=== PATIENT | female | born 1940 | race Caucasian/White ===

== ENCOUNTER 2018-05-26 10:00 | Inpatient (IN) | payer MEDICARE, OTHER ==
[~2018-05-26] VITALS: Ht 152.4 cm; Wt 83.5 kg
[2018-05-28 09:38] VITALS: BP 158/76
[2018-05-28 10:17] LABS: BASOPHILS # (AUTO) 0.02 x10^3/uL (0-0.1); BASOPHILS % (AUTO) 0 % (0-1); EOSINOPHILS # (AUTO) 0.03 x10^3/uL (0-0.4); EOSINOPHILS % (AUTO) 1 % (1-7); LYMPHOCYTES # (AUTO) 0.91 x10^3/uL (1-3.4); LYMPHOCYTES % (AUTO) 21 % (22-44); MD NO; MEAN CORPUSCULAR HEMOGLOBIN 25.2 pg (27.0-34.8); MEAN CORPUSCULAR HGB CONC 31.7 g/dL (32.4-35.8); MEAN CORPUSCULAR VOLUME 79.3 fL (80-100); MEAN PLATELET VOLUME 9.4 fL (7.4-10.4); MONOCYTES # (AUTO) 0.68 x10^3/uL (0.2-0.8); MONOCYTES % (AUTO) 16 % (2-9); NEUTROPHILS # (AUTO) 2.61 x10^3/uL (1.8-6.8); NEUTROPHILS % (AUTO) 61 % (42-75); PLATELET COUNT 247 x10^3/uL (130-400); RED BLOOD COUNT 3.83 x10^6/uL (3.82-5.3); RED CELL DISTRIBUTION WIDTH 16.4 % (9.6-15.2)
[2018-05-28] MEDS ORDERED: LEVO150T5 PO (10:18)
[2018-05-28] MEDS ORDERED: SOTA80TA PO (10:18)
[2018-05-28] MEDS ORDERED: LISI-167 PO (10:18)
[2018-05-28] MEDS ORDERED: ALEN70TA5 PO (10:18)
[2018-05-28] MEDS ORDERED: ESCI20TA PO (10:18)
[2018-05-28 10:22] LABS: INTERNATIONAL NORMALIZED RATIO 1.12 (0.93-1.1); PROTHROMBIN TIME 11.6 Seconds (9.6-11.5)
[2018-05-28 10:26] LABS: ALANINE AMINOTRANSFERASE 24 U/L (12-78); ALBUMIN 3.7 g/dL (3.4-5.0); ANION GAP 9 mmol/L (5-15); CALCIUM 8.8 mg/dL (8.5-10.1); CHLORIDE 105 mmol/L (98-107); CREATININE 0.55 mg/dL (0.55-1.02)
[2018-05-28 10:29] LABS: ALKALINE PHOSPHATASE 68 U/L (45-117); BILIRUBIN,TOTAL 0.5 mg/dL (0.2-1.0); TOTAL PROTEIN 7.1 g/dL (6.4-8.2)
[2018-05-28] MEDS: LACTATED RINGERS 1,000 ML IV SCH (10:33)
[2018-05-28] MEDS ORDERED: ACETAMINOPHEN 500 MG TABLET PO ONE (11:00)
[2018-05-28] MEDS ORDERED: OXYcodone IR 5MG TABLET PO ONE (11:00)
[2018-05-28] MEDS ORDERED: SCOPOLAMINE PATCH, 1.5MG PATCH.TD72 TD ONE (11:00)
[2018-05-28] MEDS ORDERED: GABAPENTIN 300 MG CAPSULE PO ONE (11:00)
[2018-05-28] MEDS ORDERED: ONDANSETRON ODT 8 MG PO ONE (11:00)
[2018-05-28] MEDS ORDERED: ROCURONIUM 10MG/ML,5ML ONE (12:07)
[2018-05-28] MEDS ORDERED: PROPOFOL 10 MG/ML, 20ML ONE (12:07)
[2018-05-28] MEDS ORDERED: CEFOTETAN PMX 2GM/50ML 50 ML ONE (12:07)
[2018-05-28] MEDS ORDERED: BUPIVACAINE/PF 0.5% ONE (12:13)
[2018-05-28] MEDS ORDERED: NEOSTIGMINE 1 MG/ML, 10ML ONE (12:33)
[2018-05-28] MEDS ORDERED: GLYCOPYRROLATE 0.2MG/1ML, 5ML ONE (12:33)
[2018-05-28] MEDS ORDERED: DEXAMETHASONE 4 MG/ML, 1ML ONE (12:33)
[2018-05-28] MEDS ORDERED: PROMETHAZINE 25 MG/ML, 1ML IV PRN (13:00)
[2018-05-28] MEDS ORDERED: METOPROLOL 1 MG/ML, 5ML IV PRN (13:00)
[2018-05-28] MEDS ORDERED: DIAZEPAM 5 MG/ML, 2ML IVPush PRN (13:00)
[2018-05-28] MEDS ORDERED: OXYcodone 5 MG/5 ML ORAL.SOL UDC PO PRN (13:00)
[2018-05-28] MEDS ORDERED: MEPERIDINE/PF 25MG/0.5ML IVPush PRN (13:00)
[2018-05-28] MEDS ORDERED: hydrALAzine 20 MG/ML, 1ML IV PRN (13:00)
[2018-05-28] MEDS ORDERED: LABETALOL 5MG/ML, 20ML IV PRN (13:00)
[2018-05-28] MEDS ORDERED: EPHEDRINE 50 MG/ML, 1ML IVPush PRN (13:00)
[2018-05-28] MEDS ORDERED: ALBUTEROL SULFATE 2.5 MG/3 ML NPPB PRN (13:00)
[2018-05-28] MEDS ORDERED: FENTANYL PF 250 MCG/5ML ONE (14:35)
[2018-05-28] MEDS ORDERED: ONDANSETRON 2MG/ML, 2ML ONE (15:38)
[2018-05-28] MEDS ORDERED: PHENYLEPHRINE 10 MG/ML ONE (15:38)
[2018-05-28] MEDS ORDERED: FENTANYL PF 100 MCG/2ML ONE (16:44)
[2018-05-28] MEDS: FENTANYL PF 100 MCG/2ML IV PRN ×2 (16:46→16:57)
[2018-05-28] MEDS ORDERED: HYDROmorphone 2 MG/ML, 1ML ONE (17:23)
[2018-05-28] MEDS ORDERED: HYDROmorphone 1 MG/ML, 1ML IV PRN (17:30)
[2018-05-28 20:25] VITALS: BP 116/58
[2018-05-28] MEDS: POTASSIUM CHLORIDE 20 MEQ in D5%-0.45% NACL 1,000 ML IV SCH (20:30)
[2018-05-28] MEDS: CEFOTETAN PMX 1GM/50ML 50 ML IVPB SCH (20:31)
[2018-05-29] VITALS (8 sets, daily range): BP systolic 109–133; BP diastolic 50–61
[2018-05-29] MEDS ORDERED: SODIUM CHLORIDE 0.9% 500 ML IV ONE (01:00)
[2018-05-29] MEDS: POTASSIUM CHLORIDE 20 MEQ in D5%-0.45% NACL 1,000 ML IV SCH ×4 (01:29→23:37)
[2018-05-29] MEDS: SODIUM CHLORIDE 0.9% 500 ML IV SCH ×2 (02:30→04:57)
[2018-05-29] MEDS: ONDANSETRON 2MG/ML, 2ML IVPush PRN (04:13)
[2018-05-29 05:46] LABS: ALBUMIN 2.5 g/dL (3.4-5.0); ANION GAP 8 mmol/L (5-15); CALCIUM 7.5 mg/dL (8.5-10.1); CHLORIDE 108 mmol/L (98-107); CREATININE 0.84 mg/dL (0.55-1.02)
[2018-05-29 05:54] LABS: MEAN CORPUSCULAR HEMOGLOBIN 25.1 pg (27.0-34.8); MEAN CORPUSCULAR HGB CONC 31.6 g/dL (32.4-35.8); MEAN CORPUSCULAR VOLUME 79.6 fL (80-100); MEAN PLATELET VOLUME 9.6 fL (7.4-10.4); PLATELET COUNT 236 x10^3/uL (130-400); RED BLOOD COUNT 2.92 x10^6/uL (3.82-5.3); RED CELL DISTRIBUTION WIDTH 16.6 % (9.6-15.2)
[2018-05-29 06:10] LABS: MD YES
[2018-05-29 06:12] LABS: BANDS%(MANUAL) 9 % (0-7); LYMPH#(MANUAL) 0.67 x10^3/uL (1-3.4); LYMPHS% (MANUAL) 5 % (22-44); MONOS% (MANUAL) 6 % (2-9); SEG#(MANUAL) 10.64 x10^3/uL (1.8-6.8); SEGS% (MANUAL) 80 % (42-75)
[2018-05-29 06:14] LABS: ANISOCYTOSIS 1+; MICROCYTOSIS 1+; POLYCHROMASIA 1+
[2018-05-29 06:15] LABS: <PLATELET ESTIMATE> ADEQUATE; <PLT MORPHOLOGY> NORMAL PLT MORPH
[2018-05-29] MEDS: CEFOTETAN PMX 1GM/50ML 50 ML IVPB SCH (06:51)
[2018-05-29] MEDS: LACTATED RINGERS 1,000 ML IV SCH (07:01)
[2018-05-29] MEDS: INSULIN LISPRO 100 UNITS/ML, PEN SQ-INSULIN SCH ×3 (11:45→21:00)
[2018-05-29 12:07] LABS: MEAN CORPUSCULAR HEMOGLOBIN 24.6 pg (27.0-34.8); MEAN CORPUSCULAR HGB CONC 31.1 g/dL (32.4-35.8); MEAN CORPUSCULAR VOLUME 79.2 fL (80-100); MEAN PLATELET VOLUME 9.5 fL (7.4-10.4); PLATELET COUNT 230 x10^3/uL (130-400); RED BLOOD COUNT 2.85 x10^6/uL (3.82-5.3); RED CELL DISTRIBUTION WIDTH 16.7 % (9.6-15.2)
[2018-05-29 12:59] LABS: MD YES
[2018-05-29 13:00] LABS: BAND#(MANUAL) 0.14 x10^3/uL; BANDS%(MANUAL) 1 % (0-7); LYMPH#(MANUAL) 0.69 x10^3/uL (1-3.4); LYMPHS% (MANUAL) 5 % (22-44); MONOS#(MANUAL) 0.69 x10^3/uL (0.3-2.7); MONOS% (MANUAL) 5 % (2-9); SEG#(MANUAL) 12.19 x10^3/uL (1.8-6.8); SEGS% (MANUAL) 89 % (42-75)
[2018-05-29 13:01] LABS: ANISOCYTOSIS 1+; MICROCYTOSIS 1+; POLYCHROMASIA 1+
[2018-05-29 13:02] LABS: HYPOCHROMIA 1+
[2018-05-29 13:03] LABS: <PLATELET ESTIMATE> ADEQUATE; <PLT MORPHOLOGY> NORMAL PLT MORPH
[2018-05-29] MEDS ORDERED: LORazepam 0.5MG TABLET PO PRN (20:00)
[2018-05-30] MEDS: INSULIN LISPRO 100 UNITS/ML, PEN SQ-INSULIN SCH ×4 (03:00→21:00)
[2018-05-30] MEDS: LEVOTHYROXINE 150 MCG TABLET PO SCH (05:56)
[2018-05-30] MEDS: POTASSIUM CHLORIDE 20 MEQ in D5%-0.45% NACL 1,000 ML IV SCH ×3 (08:03→20:20)
[2018-05-30 08:12] LABS: MEAN CORPUSCULAR HEMOGLOBIN 26.6 pg (27.0-34.8); MEAN CORPUSCULAR HGB CONC 32.1 g/dL (32.4-35.8); MEAN PLATELET VOLUME 9.2 fL (7.4-10.4); PLATELET COUNT 195 x10^3/uL (130-400); RED BLOOD COUNT 3.34 x10^6/uL (3.82-5.3); RED CELL DISTRIBUTION WIDTH 16.1 % (9.6-15.2)
[2018-05-30 08:17] LABS: ANION GAP 5 mmol/L (5-15); CALCIUM 7.8 mg/dL (8.5-10.1); CHLORIDE 104 mmol/L (98-107); CREATININE 0.47 mg/dL (0.55-1.02)
[2018-05-30 08:33] LABS: BAND#(MANUAL) 0.54 x10^3/uL; BANDS%(MANUAL) 5 % (0-7); LYMPH#(MANUAL) 0.76 x10^3/uL (1-3.4); LYMPHS% (MANUAL) 7 % (22-44); MD YES; MONOS#(MANUAL) 0.32 x10^3/uL (0.3-2.7); MONOS% (MANUAL) 3 % (2-9); SEG#(MANUAL) 9.18 x10^3/uL (1.8-6.8); SEGS% (MANUAL) 85 % (42-75)
[2018-05-30 08:34] LABS: <PLATELET ESTIMATE> ADEQUATE; <PLT MORPHOLOGY> NORMAL PLT MORPH; ANISOCYTOSIS 1+; POLYCHROMASIA 1+
[2018-05-30 17:51] VITALS: BP 139/72
[2018-05-30 20:52] VITALS: BP 113/73
[2018-05-31] VITALS (10 sets, daily range): BP systolic 107–137; BP diastolic 67–81
[2018-05-31] MEDS: SOTALOL 80MG TABLET PO SCH ×2 (00:16→02:47)
[2018-05-31] MEDS: POTASSIUM CHLORIDE 20 MEQ in D5%-0.45% NACL 1,000 ML IV SCH ×2 (02:41→14:30)
[2018-05-31] MEDS: INSULIN LISPRO 100 UNITS/ML, PEN SQ-INSULIN SCH ×4 (03:00→21:00)
[2018-05-31 05:40] LABS: BASOPHILS # (AUTO) 0.01 x10^3/uL (0-0.1); BASOPHILS % (AUTO) 0 % (0-1); EOSINOPHILS # (AUTO) 0.25 x10^3/uL (0-0.4); EOSINOPHILS % (AUTO) 3 % (1-7); LYMPHOCYTES # (AUTO) 0.95 x10^3/uL (1-3.4); LYMPHOCYTES % (AUTO) 12 % (22-44); MD NO; MEAN CORPUSCULAR HGB CONC 32.6 g/dL (32.4-35.8); MEAN CORPUSCULAR VOLUME 82.8 fL (80-100); MEAN PLATELET VOLUME 9.2 fL (7.4-10.4); MONOCYTES # (AUTO) 0.89 x10^3/uL (0.2-0.8); MONOCYTES % (AUTO) 11 % (2-9); NEUTROPHILS # (AUTO) 6.09 x10^3/uL (1.8-6.8); NEUTROPHILS % (AUTO) 74 % (42-75); PLATELET COUNT 196 x10^3/uL (130-400); RED BLOOD COUNT 3.14 x10^6/uL (3.82-5.3); RED CELL DISTRIBUTION WIDTH 17.5 % (9.6-15.2)
[2018-05-31 05:46] LABS: CHLORIDE 104 mmol/L (98-107)
[2018-05-31 05:52] LABS: ANION GAP 8 mmol/L (5-15); CALCIUM 7.7 mg/dL (8.5-10.1); CREATININE 0.34 mg/dL (0.55-1.02)
[2018-05-31] MEDS: LEVOTHYROXINE 150 MCG TABLET PO SCH (06:00)
[2018-05-31] MEDS ORDERED: LEVOTHYROXINE 25 MCG TABLET ONE (06:13)
[2018-05-31] MEDS ORDERED: LEVOTHYROXINE 125 MCG TABLET ONE (06:13)
[2018-05-31] MEDS ORDERED: SODIUM CHLORIDE 0.9%, 250ML IVBOLUS ONE (08:00)
[2018-05-31 11:50] LABS: INTERNATIONAL NORMALIZED RATIO 1.02 (0.93-1.1); PROTHROMBIN TIME 10.6 Seconds (9.6-11.5)
[2018-05-31] MEDS ORDERED: OMNIPAQUE 350 MG/ML, 100ML BOTTLE ONE (16:08)
[2018-05-31] MEDS ORDERED: MIDAZOLAM 1 MG/ML, 2ML ONE ×2 (18:41→22:14)
[2018-05-31] MEDS ORDERED: FENTANYL PF 100 MCG/2ML ONE ×3 (18:41→21:37)
[2018-05-31] MEDS ORDERED: SUCCINYLCHOLINE 20 MG/ML, 10ML ONE (19:05)
[2018-05-31] MEDS ORDERED: PROPOFOL 10 MG/ML, 20ML ONE (19:05)
[2018-05-31] MEDS ORDERED: ONDANSETRON 2MG/ML, 2ML ONE (19:05)
[2018-05-31] MEDS ORDERED: ROCURONIUM 10MG/ML,5ML ONE (19:05)
[2018-05-31] MEDS ORDERED: DEXAMETHASONE 4 MG/ML, 1ML ONE (19:05)
[2018-05-31] MEDS ORDERED: LABETALOL 5MG/ML 40ML VIAL ONE (19:05)
[2018-05-31] MEDS ORDERED: GLYCOPYRROLATE 0.2MG/1ML, 5ML ONE (19:05)
[2018-05-31] MEDS ORDERED: NEOSTIGMINE 1 MG/ML, 10ML ONE (19:05)
[2018-05-31] MEDS ORDERED: CEFOTETAN 1 GM ONE (19:05)
[2018-05-31] MEDS ORDERED: HYDROmorphone 2 MG/ML, 1ML ONE (21:37)
[2018-05-31] MEDS: FENTANYL PF 100 MCG/2ML IV PRN ×2 (21:40→21:45)
[2018-05-31] MEDS ORDERED: HALOPERIDOL 5 MG/ML ONE (21:48)
[2018-05-31] MEDS: HYDROmorphone 1 MG/ML, 1ML IV PRN ×2 (21:50→22:24)
[2018-05-31] MEDS ORDERED: MEPERIDINE/PF 25MG/0.5ML IVPush PRN (22:00)
[2018-05-31] MEDS ORDERED: ALBUTEROL SULFATE 2.5 MG/3 ML NPPB PRN (22:00)
[2018-05-31] MEDS ORDERED: hydrALAzine 20 MG/ML, 1ML IV PRN (22:00)
[2018-05-31] MEDS ORDERED: ACETAMINOPHEN 325 MG TABLET PO PRN (22:00)
[2018-05-31] MEDS ORDERED: HYDROcodone/APAP 7.5-325MG/15ML UDC PO PRN (22:00)
[2018-05-31] MEDS ORDERED: OXYcodone 5 MG/5 ML ORAL.SOL UDC PO PRN (22:00)
[2018-05-31] MEDS ORDERED: LABETALOL 5MG/ML, 20ML IV PRN (22:00)
[2018-05-31] MEDS ORDERED: EPHEDRINE 50 MG/ML, 1ML IVPush PRN (22:00)
[2018-05-31] MEDS ORDERED: MIDAZOLAM 1 MG/ML, 2ML IV PRN (22:00)
[2018-05-31] MEDS ORDERED: ONDANSETRON ODT 8 MG PO PRN (22:00)
[2018-05-31] MEDS ORDERED: PROMETHAZINE 25 MG/ML, 1ML IV PRN (22:00)
[2018-05-31] MEDS ORDERED: HALOPERIDOL 5 MG/ML IV PRN (22:00)
[2018-06-01 04:00] VITALS: BP 148/91
[2018-06-01] MEDS: INSULIN LISPRO 100 UNITS/ML, PEN SQ-INSULIN SCH ×2 (04:10→09:00)
[2018-06-01 04:28] LABS: BASOPHILS # (AUTO) 0.07 x10^3/uL (0-0.1); BASOPHILS % (AUTO) 1 % (0-1); EOSINOPHILS % (AUTO) 0 % (1-7); LYMPHOCYTES # (AUTO) 0.79 x10^3/uL (1-3.4); LYMPHOCYTES % (AUTO) 6 % (22-44); MD NO; MEAN CORPUSCULAR HEMOGLOBIN 27.9 pg (27.0-34.8); MEAN CORPUSCULAR HGB CONC 33.2 g/dL (32.4-35.8); MEAN CORPUSCULAR VOLUME 83.9 fL (80-100); MEAN PLATELET VOLUME 9.6 fL (7.4-10.4); MONOCYTES # (AUTO) 0.48 x10^3/uL (0.2-0.8); MONOCYTES % (AUTO) 4 % (2-9); NEUTROPHILS # (AUTO) 11.15 x10^3/uL (1.8-6.8); NEUTROPHILS % (AUTO) 89 % (42-75); PLATELET COUNT 196 x10^3/uL (130-400); RED BLOOD COUNT 4.37 x10^6/uL (3.82-5.3); RED CELL DISTRIBUTION WIDTH 17.1 % (9.6-15.2)
[2018-06-01 04:36] LABS: ANION GAP 6 mmol/L (5-15); CALCIUM 7.5 mg/dL (8.5-10.1); CHLORIDE 107 mmol/L (98-107)
[2018-06-01 04:37] LABS: CREATININE 0.36 mg/dL (0.55-1.02)
[2018-06-01] MEDS: POTASSIUM CHLORIDE 20 MEQ in D5%-0.45% NACL 1,000 ML IV SCH ×3 (04:48→23:09)
[2018-06-01] MEDS: LEVOTHYROXINE 150 MCG TABLET PO SCH (05:56)
[2018-06-01] MEDS: PANTOPRAZOLE 40 MG IV IVPush SCH (09:41)
[2018-06-01] MEDS: CEFOTETAN PMX 1GM/50ML 50 ML IV SCH ×2 (10:08→23:10)
[2018-06-01] MEDS ORDERED: MENING VAC A,C,Y,W-135/PF 0.5 ML SQ-VACC ONE (11:00)
[2018-06-01] MEDS ORDERED: PNEUMOCOCCAL 23 VACCINE IM ONE (11:00)
[2018-06-01] MEDS ORDERED: HAEMOPH B POLY CONJ-TET TOX/PF 10 MCG/0.5 ML INJ IM-VACC ONE (11:00)
[2018-06-01] MEDS: SOTALOL 80MG TABLET PO SCH ×2 (13:39→19:14)
[2018-06-01] MEDS: DIPHENHYDRAMINE 50 MG/ML, 1ML IV PRN (20:50)
[2018-06-02 05:03] VITALS: BP 120/47
[2018-06-02] MEDS: LEVOTHYROXINE 150 MCG TABLET PO SCH (05:13)
[2018-06-02] MEDS: SOTALOL 80MG TABLET PO SCH ×2 (05:14→17:46)
[2018-06-02 05:28] LABS: ANION GAP 6 mmol/L (5-15); CALCIUM 7.3 mg/dL (8.5-10.1); CHLORIDE 102 mmol/L (98-107); CREATININE 0.43 mg/dL (0.55-1.02); MEAN CORPUSCULAR HEMOGLOBIN 27.3 pg (27.0-34.8); MEAN CORPUSCULAR HGB CONC 32.5 g/dL (32.4-35.8); MEAN PLATELET VOLUME 8.8 fL (7.4-10.4); PLATELET COUNT 221 x10^3/uL (130-400); RED BLOOD COUNT 3.56 x10^6/uL (3.82-5.3)
[2018-06-02] MEDS ORDERED: LEVOTHYROXINE 150 MCG TABLET PO SCH (06:00)
[2018-06-02 06:26] LABS: BASOPHILS # (AUTO) 0.02 x10^3/uL (0-0.1); BASOPHILS % (AUTO) 0 % (0-1); EOSINOPHILS # (AUTO) 0.28 x10^3/uL (0-0.4); EOSINOPHILS % (AUTO) 2 % (1-7); LYMPHOCYTES # (AUTO) 1.23 x10^3/uL (1-3.4); LYMPHOCYTES % (AUTO) 7 % (22-44); MD SCAN; MONOCYTES # (AUTO) 2.07 x10^3/uL (0.2-0.8); MONOCYTES % (AUTO) 12 % (2-9); NEUTROPHILS # (AUTO) 13.25 x10^3/uL (1.8-6.8); NEUTROPHILS % (AUTO) 79 % (42-75)
[2018-06-02] MEDS: POTASSIUM CHLORIDE 20 MEQ in D5%-0.45% NACL 1,000 ML IV SCH (08:11)
[2018-06-02] MEDS: PANTOPRAZOLE 40 MG IV IVPush SCH (08:48)
[2018-06-02] MEDS: KETOROLAC 30 MG/1 ML IM SCH ×3 (09:57→21:31)
[2018-06-02 12:17] VITALS: BP 141/73
[2018-06-02] MEDS: D5%-0.45NACL+KCL 20MEQ 1,000 ML IV SCH (17:20)
[2018-06-02 17:48] VITALS: BP 122/78
[2018-06-02 19:38] VITALS: BP 145/63
[2018-06-02 23:51] VITALS: BP 132/70
[2018-06-03 03:03] VITALS: BP 131/65
[2018-06-03] MEDS: D5%-0.45NACL+KCL 20MEQ 1,000 ML IV SCH ×2 (03:50→17:32)
[2018-06-03] MEDS: KETOROLAC 30 MG/1 ML IM SCH ×4 (03:51→21:53)
[2018-06-03 04:38] LABS: MEAN CORPUSCULAR HEMOGLOBIN 27.7 pg (27.0-34.8); MEAN CORPUSCULAR HGB CONC 32.5 g/dL (32.4-35.8); MEAN CORPUSCULAR VOLUME 85.2 fL (80-100); MEAN PLATELET VOLUME 8.6 fL (7.4-10.4); PLATELET COUNT 273 x10^3/uL (130-400); RED BLOOD COUNT 3.43 x10^6/uL (3.82-5.3); RED CELL DISTRIBUTION WIDTH 17.4 % (9.6-15.2)
[2018-06-03 04:47] LABS: ANION GAP 4 mmol/L (5-15); CALCIUM 7.7 mg/dL (8.5-10.1); CHLORIDE 102 mmol/L (98-107)
[2018-06-03 04:48] LABS: CREATININE 0.42 mg/dL (0.55-1.02)
[2018-06-03] MEDS ORDERED: LEVOTHYROXINE 75 MCG TABLET ONE (05:45)
[2018-06-03] MEDS: SOTALOL 80MG TABLET PO SCH ×2 (05:47→17:54)
[2018-06-03] MEDS: LEVOTHYROXINE 150 MCG TABLET PO SCH (05:48)
[2018-06-03 05:51] LABS: BASOPHILS # (AUTO) 0.01 x10^3/uL (0-0.1); BASOPHILS % (AUTO) 0 % (0-1); EOSINOPHILS % (AUTO) 6 % (1-7); LYMPHOCYTES # (AUTO) 1.21 x10^3/uL (1-3.4); LYMPHOCYTES % (AUTO) 9 % (22-44); MD SCAN; MONOCYTES # (AUTO) 1.82 x10^3/uL (0.2-0.8); MONOCYTES % (AUTO) 14 % (2-9); NEUTROPHILS # (AUTO) 9.01 x10^3/uL (1.8-6.8); NEUTROPHILS % (AUTO) 70 % (42-75)
[2018-06-03 07:15] VITALS: BP 128/60
[2018-06-03] MEDS: PANTOPRAZOLE 40 MG IV IVPush SCH (09:21)
[2018-06-03] MEDS ORDERED: morphine SULFATE 10 MG/ML, 1ML IVPush PRN (12:00)
[2018-06-03 14:09] VITALS: BP 137/69
[2018-06-03 19:49] VITALS: BP 144/92
[2018-06-03] MEDS: OXYcodone/APAP 5/325MG TABLET PO PRN (19:51)
[2018-06-04 04:00] VITALS: BP 145/72
[2018-06-04] MEDS ORDERED: LEVOTHYROXINE 75 MCG TABLET ONE (05:52)
[2018-06-04] MEDS: LEVOTHYROXINE 150 MCG TABLET PO SCH (05:54)
[2018-06-04] MEDS: KETOROLAC 30 MG/1 ML IM SCH ×4 (05:54→22:09)
[2018-06-04] MEDS: SOTALOL 80MG TABLET PO SCH ×2 (05:54→16:57)
[2018-06-04 06:02] LABS: ANION GAP 7 mmol/L (5-15); CHLORIDE 102 mmol/L (98-107); CREATININE 0.39 mg/dL (0.55-1.02)
[2018-06-04 07:20] VITALS: BP 139/79
[2018-06-04] MEDS: PANTOPRAZOLE 40 MG IV IVPush SCH (08:17)
[2018-06-04] MEDS ORDERED: FUROSEMIDE 40 MG/4 ML IV ONE (10:00)
[2018-06-04] MEDS: D5%-0.45NACL+KCL 20MEQ 1,000 ML IV SCH (12:33)
[2018-06-04 13:20] VITALS: BP 148/85
[2018-06-04] MEDS: OXYcodone/APAP 5/325MG TABLET PO PRN (19:26)
[2018-06-04] MEDS: ONDANSETRON 2MG/ML, 2ML IVPush PRN (19:45)
[2018-06-04 20:00] VITALS: BP 163/89
[2018-06-05] MEDS: OXYcodone/APAP 5/325MG TABLET PO PRN ×4 (01:01→23:44)
[2018-06-05 01:58] VITALS: BP 121/75
[2018-06-05] MEDS: KETOROLAC 30 MG/1 ML IM SCH ×4 (04:29→23:43)
[2018-06-05] MEDS: SOTALOL 80MG TABLET PO SCH ×2 (06:01→17:01)
[2018-06-05] MEDS: LEVOTHYROXINE 150 MCG TABLET PO SCH (06:01)
[2018-06-05 07:30] VITALS: BP 110/66
[2018-06-05] MEDS: PANTOPRAZOLE 40 MG IV IVPush SCH (08:30)
[2018-06-05] MEDS: D5%-0.45NACL+KCL 20MEQ 1,000 ML IV SCH (08:38)
[2018-06-05] MEDS: ENOXAPARIN 40 MG/0.4 ML SQ SCH (12:05)
[2018-06-05] MEDS: MAGNESIUM HYDROXIDE 8%, 30ML UDC PO SCH (12:05)
[2018-06-05] MEDS: ONDANSETRON 2MG/ML, 2ML IVPush PRN ×2 (12:40→23:43)
[2018-06-05 13:15] VITALS: BP 112/57
[2018-06-05 20:21] VITALS: BP 119/69
[2018-06-06 03:47] VITALS: BP 114/62
[2018-06-06 05:03] LABS: ANION GAP 9 mmol/L (5-15); CHLORIDE 101 mmol/L (98-107); CREATININE 0.42 mg/dL (0.55-1.02)
[2018-06-06 05:07] LABS: BASOPHILS # (AUTO) 0.04 x10^3/uL (0-0.1); BASOPHILS % (AUTO) 0 % (0-1); EOSINOPHILS # (AUTO) 0.46 x10^3/uL (0-0.4); EOSINOPHILS % (AUTO) 3 % (1-7); LYMPHOCYTES # (AUTO) 0.98 x10^3/uL (1-3.4); LYMPHOCYTES % (AUTO) 7 % (22-44); MD NO; MEAN CORPUSCULAR HEMOGLOBIN 27.8 pg (27.0-34.8); MEAN CORPUSCULAR VOLUME 84.3 fL (80-100); MEAN PLATELET VOLUME 8.2 fL (7.4-10.4); MONOCYTES % (AUTO) 8 % (2-9); NEUTROPHILS # (AUTO) 11.21 x10^3/uL (1.8-6.8); NEUTROPHILS % (AUTO) 81 % (42-75); PLATELET COUNT 582 x10^3/uL (130-400); RED CELL DISTRIBUTION WIDTH 18.1 % (9.6-15.2)
[2018-06-06] MEDS ORDERED: LEVOTHYROXINE 75 MCG TABLET ONE (06:35)
[2018-06-06] MEDS: KETOROLAC 30 MG/1 ML IM SCH ×4 (06:38→23:16)
[2018-06-06] MEDS: LEVOTHYROXINE 150 MCG TABLET PO SCH (06:39)
[2018-06-06] MEDS: SOTALOL 80MG TABLET PO SCH ×2 (06:39→18:24)
[2018-06-06] MEDS: MAGNESIUM HYDROXIDE 8%, 30ML UDC PO SCH (08:42)
[2018-06-06] MEDS: PANTOPRAZOLE 40 MG IV IVPush SCH (08:48)
[2018-06-06 09:25] VITALS: BP 144/81
[2018-06-06 12:54] VITALS: BP 139/81
[2018-06-06] MEDS: ENOXAPARIN 40 MG/0.4 ML SQ SCH (13:20)
[2018-06-06] MEDS: OXYcodone/APAP 5/325MG TABLET PO PRN ×2 (18:24→23:17)
[2018-06-06 19:35] VITALS: BP 124/80
[2018-06-06] MEDS: D5%-0.45NACL+KCL 20MEQ 1,000 ML IV SCH (20:49)
[2018-06-06] MEDS: CEFOTETAN PMX 1GM/50ML 50 ML IV SCH (20:49)
[2018-06-07 01:21] VITALS: BP 120/65
[2018-06-07] MEDS: KETOROLAC 30 MG/1 ML IM SCH (04:55)
[2018-06-07 07:31] VITALS: BP 144/86
[2018-06-07] MEDS ORDERED: LEVOTHYROXINE 100 MCG TABLET ONE (08:04)
[2018-06-07] MEDS: CEFOTETAN PMX 1GM/50ML 50 ML IV SCH ×2 (08:06→20:13)
[2018-06-07] MEDS: SOTALOL 80MG TABLET PO SCH ×2 (08:06→18:06)
[2018-06-07] MEDS: LEVOTHYROXINE 150 MCG TABLET PO SCH (08:14)
[2018-06-07] MEDS: PANTOPRAZOLE 40 MG IV IVPush SCH (09:34)
[2018-06-07 12:29] VITALS: BP 146/83
[2018-06-07] MEDS: PSYLLIUM PACKET PO SCH ×2 (13:00→14:20)
[2018-06-07] MEDS: ENOXAPARIN 40 MG/0.4 ML SQ SCH (14:16)
[2018-06-07] MEDS: D5%-0.45NACL+KCL 20MEQ 1,000 ML IV SCH (16:00)
[2018-06-07] MEDS: OXYcodone/APAP 5/325MG TABLET PO PRN ×2 (18:49→22:57)
[2018-06-07 19:22] VITALS: BP 133/77
[2018-06-08 00:16] VITALS: BP 114/70
[2018-06-08] MEDS: OXYcodone/APAP 5/325MG TABLET PO PRN ×3 (03:55→22:12)
[2018-06-08 05:06] LABS: BASOPHILS # (AUTO) 0.05 x10^3/uL (0-0.1); BASOPHILS % (AUTO) 1 % (0-1); EOSINOPHILS # (AUTO) 0.54 x10^3/uL (0-0.4); EOSINOPHILS % (AUTO) 6 % (1-7); LYMPHOCYTES # (AUTO) 1.39 x10^3/uL (1-3.4); LYMPHOCYTES % (AUTO) 15 % (22-44); MD NO; MEAN CORPUSCULAR HEMOGLOBIN 27.3 pg (27.0-34.8); MEAN CORPUSCULAR HGB CONC 32.7 g/dL (32.4-35.8); MEAN CORPUSCULAR VOLUME 83.5 fL (80-100); MEAN PLATELET VOLUME 7.7 fL (7.4-10.4); MONOCYTES # (AUTO) 1.25 x10^3/uL (0.2-0.8); MONOCYTES % (AUTO) 13 % (2-9); NEUTROPHILS # (AUTO) 6.14 x10^3/uL (1.8-6.8); NEUTROPHILS % (AUTO) 66 % (42-75); PLATELET COUNT 828 x10^3/uL (130-400); RED BLOOD COUNT 3.44 x10^6/uL (3.82-5.3); RED CELL DISTRIBUTION WIDTH 18.5 % (9.6-15.2)
[2018-06-08 05:13] LABS: ANION GAP 7 mmol/L (5-15); CALCIUM 7.8 mg/dL (8.5-10.1); CHLORIDE 102 mmol/L (98-107)
[2018-06-08 05:16] LABS: CREATININE 0.43 mg/dL (0.55-1.02)
[2018-06-08] MEDS: LEVOTHYROXINE 150 MCG TABLET PO SCH (05:46)
[2018-06-08] MEDS: SOTALOL 80MG TABLET PO SCH ×2 (05:46→18:30)
[2018-06-08 07:12] VITALS: BP 128/80
[2018-06-08] MEDS: CEFOTETAN PMX 1GM/50ML 50 ML IV SCH ×2 (07:42→21:16)
[2018-06-08] MEDS: PANTOPRAZOLE 40 MG IV IVPush SCH (09:46)
[2018-06-08] MEDS: D5%-0.45NACL+KCL 20MEQ 1,000 ML IV SCH (12:00)
[2018-06-08] MEDS: ENOXAPARIN 40 MG/0.4 ML SQ SCH (12:00)
[2018-06-08] MEDS: METRONIDAZOLE PMX 500MG/100ML 100 ML IV SCH ×2 (12:08→19:50)
[2018-06-08 13:14] VITALS: BP 102/63
[2018-06-08] MEDS: IBUPROFEN 200 MG TABLET PO PRN (18:30)
[2018-06-08 20:12] VITALS: BP 130/78
[2018-06-09 02:27] VITALS: BP 123/60
[2018-06-09] MEDS: METRONIDAZOLE PMX 500MG/100ML 100 ML IV SCH ×3 (03:37→18:31)
[2018-06-09] MEDS: LEVOTHYROXINE 150 MCG TABLET PO SCH (04:55)
[2018-06-09] MEDS: OXYcodone/APAP 5/325MG TABLET PO PRN ×2 (04:55→19:34)
[2018-06-09] MEDS: SOTALOL 80MG TABLET PO SCH ×2 (04:55→18:30)
[2018-06-09 07:24] VITALS: BP 150/79
[2018-06-09] MEDS: CEFOTETAN PMX 1GM/50ML 50 ML IV SCH ×2 (07:41→19:39)
[2018-06-09] MEDS: PANTOPRAZOLE 40 MG IV IVPush SCH (07:42)
[2018-06-09] MEDS: D5%-0.45NACL+KCL 20MEQ 1,000 ML IV SCH (07:43)
[2018-06-09] MEDS: PSYLLIUM PACKET PO SCH ×2 (07:47→08:59)
[2018-06-09] MEDS: ENOXAPARIN 40 MG/0.4 ML SQ SCH (11:45)
[2018-06-09 12:52] VITALS: BP 112/65
[2018-06-09 19:38] VITALS: BP 136/79
[2018-06-10] MEDS: IBUPROFEN 200 MG TABLET PO PRN (00:04)
[2018-06-10] MEDS: DIPHENHYDRAMINE 50 MG/ML, 1ML IV PRN (00:04)
[2018-06-10 02:35] VITALS: BP 101/61
[2018-06-10] MEDS: D5%-0.45NACL+KCL 20MEQ 1,000 ML IV SCH (03:54)
[2018-06-10] MEDS: METRONIDAZOLE PMX 500MG/100ML 100 ML IV SCH ×2 (03:54→11:44)
[2018-06-10] MEDS: LEVOTHYROXINE 150 MCG TABLET PO SCH (05:50)
[2018-06-10] MEDS: SOTALOL 80MG TABLET PO SCH (05:50)
[2018-06-10 07:20] VITALS: BP 111/65
[2018-06-10] MEDS: PANTOPRAZOLE 40 MG IV IVPush SCH (08:16)
[2018-06-10] MEDS: CEFOTETAN PMX 1GM/50ML 50 ML IV SCH (08:16)
[2018-06-10] MEDS: PSYLLIUM PACKET PO SCH (08:16)
[2018-06-10] MEDS: ENOXAPARIN 40 MG/0.4 ML SQ SCH (11:44)
[2018-06-10 13:14] VITALS: BP 127/73
[2018-06-10] MEDS ORDERED: CIPR500T87 PO (13:39)
[2018-06-10] MEDS ORDERED: METR500T8 PO (13:40)
== END 2018-06-10 14:15 | disposition home health service (06) | DRG 330 ==
LOC: ORIP 05-28 08:50 → 4NOR 05-28 18:50 → CCU 05-29 01:40 → 4NOR 05-30 17:43 → CCU 05-31 23:03 → 4NOR 06-02 12:12 → DCLOUNGE 06-10 13:46
PROVIDERS: ADMIT Surgery; ATTEND Surgery
PROC: 30233N1 Transfusion of Nonautologous Red Blood Cells into Peripheral Vein, Percutaneous Approach (ICD-10-PCS; 2018-05-29)
PROC: 07TP0ZZ Resection of Spleen, Open Approach (ICD-10-PCS; 2018-05-31)
PROC: 0DQM0ZZ Repair Descending Colon, Open Approach (ICD-10-PCS; principal; 2018-06-01)
PROC: 0WCG0ZZ Extirpation of Matter from Peritoneal Cavity, Open Approach (ICD-10-PCS; 2018-06-01)
PROC: 0DQP0ZZ Repair Rectum, Open Approach (ICD-10-PCS; 2018-06-01)
DX: Z43.3 Encounter for attention to colostomy (principal); L03.90 Cellulitis, unspecified; J90 Pleural effusion, not elsewhere classified; D62 Acute posthemorrhagic anemia; S36.039A Unspecified laceration of spleen, initial encounter; K44.9 Diaphragmatic hernia without obstruction or gangrene; I49.5 Sick sinus syndrome; K66.0 Peritoneal adhesions (postprocedural) (postinfection)
CPT/HCPCS: 36415; 71045; 74177; 80048; 80053; 82040; 82330; 82803; 82947; 82962; 84132; 84295; 85014; 85018; 85025; 85610; 85730; 86850; 86900; 86923; 87081; 88304; 88305; 88313; 90648; 90732; 90733; 93005; C1729; J1100; J1170; J1650; J1885; J1940; J2250; J2270; J2405; J2704; J2710; J3010; J3480; J3490; Q0162; Q9967; C1760; C9113; J0330; J1200; J1630; J2370; J7040; J7050; J7120; P9016; S0074